=== PATIENT | female | born 1975 | race Caucasian/White ===

== ENCOUNTER 2017-01-01 10:52 | Outpatient (CLI) | payer BC ==
[2017-01-01 19:09] LABS: ALBUMIN/GLOBULIN RATIO 1.4 (1.0-2.2); BILIRUBIN,TOTAL 0.5 mg/dL (0.2-1.0); CALCIUM 9.6 mg/dL (8.5-10.3); CREATININE 0.6 mg/dL (0.4-1.0); POTASSIUM 3.5 mmol/L (3.5-5.0); TOTAL PROTEIN 7.8 g/dL (6.7-8.2)
== END 2017-01-01 10:53 | disposition home or self-care (01) ==
LOC: LAB.S 10:52
PROVIDERS: ATTEND Nurse Practitioner Family
DX: E87.6 Hypokalemia (principal); E03.9 Hypothyroidism, unspecified
CPT/HCPCS: 36415; 80053; 84443

== ENCOUNTER 2017-01-01 13:47 | Outpatient (CLI) | payer BC | END 2017-01-01 13:48 | disposition home or self-care (01) | DX: R07.9 Chest pain, unspecified (principal) ==

== ENCOUNTER 2017-01-08 14:17 | Outpatient (CLI) | payer BC ==
[2017-01-08 18:54] LABS: CALCIUM 9.7 mg/dL (8.5-10.3); CREATININE 0.7 mg/dL (0.4-1.0); POTASSIUM 4.1 mmol/L (3.5-5.0)
== END 2017-01-08 14:18 | disposition home or self-care (01) ==
LOC: LAB.F 14:17
PROVIDERS: ATTEND Nurse Practitioner Family
DX: E87.6 Hypokalemia (principal)
CPT/HCPCS: 36415; 80048

== ENCOUNTER 2017-01-22 09:35 | Outpatient (CLI) | payer BC ==
[2017-01-22 18:29] LABS: CALCIUM 9.2 mg/dL (8.5-10.3); CREATININE 0.7 mg/dL (0.4-1.0)
== END 2017-01-22 09:36 | disposition home or self-care (01) ==
LOC: LAB.F 09:35
PROVIDERS: ATTEND Nurse Practitioner Family
DX: E87.6 Hypokalemia (principal)
CPT/HCPCS: 36415; 80048

== ENCOUNTER 2017-02-05 14:27 | Outpatient (CLI) | payer BC | END 2017-02-05 14:28 | disposition home or self-care (01) | LOC: SC 14:27 | PROVIDERS: ATTEND Internal Medicine Pulmonary Disease | DX: G47.30 Sleep apnea, unspecified (principal); R06.83 Snoring; G47.10 Hypersomnia, unspecified | CPT/HCPCS: 99203; 99212 ==

== ENCOUNTER 2017-02-23 10:32 | Outpatient (CLI) | payer BC ==
[2017-02-23 20:33] LABS: CALCIUM 9.4 mg/dL (8.5-10.3); CREATININE 0.6 mg/dL (0.4-1.0); POTASSIUM 4.1 mmol/L (3.5-5.0)
== END 2017-02-23 10:33 | disposition home or self-care (01) ==
LOC: LAB.F 10:32
PROVIDERS: ATTEND Nurse Practitioner Family
DX: E87.6 Hypokalemia (principal)
CPT/HCPCS: 36415; 80048

== ENCOUNTER 2017-04-18 09:14 | Outpatient (CLI) | payer BC | END 2017-04-18 09:15 | disposition home or self-care (01) | LOC: SC 09:14 | PROVIDERS: ATTEND Nurse Practitioner Family | DX: G47.33 Obstructive sleep apnea (adult) (pediatric) (principal) | CPT/HCPCS: 99212; 99214 ==

== ENCOUNTER 2017-05-07 09:50 | Outpatient (CLI) | payer BC ==
[2017-05-07 19:08] LABS: BUN - BLOOD UREA NITROGEN 14 mg/dL (6-20); CALCIUM 9.8 mg/dL (8.5-10.3); CARBON DIOXIDE - CO2 28 mmol/L (21-32); CHLORIDE 99 mmol/L (101-111); CREATININE 0.7 mg/dL (0.4-1.0); GFR - MDRD 93 (>89); GLUCOSE 81 mg/dL (70-100); SODIUM 136 mmol/L (135-145)
== END 2017-05-07 09:51 | disposition home or self-care (01) ==
LOC: LAB.F 09:50
PROVIDERS: ATTEND Nurse Practitioner Family
DX: E78.6 Lipoprotein deficiency (principal); E03.9 Hypothyroidism, unspecified
CPT/HCPCS: 36415; 80048; 84443

== ENCOUNTER 2017-06-04 15:00 | Outpatient (CLI) | payer BC | END 2017-06-04 15:01 | disposition home or self-care (01) | LOC: SC 15:00 | PROVIDERS: ATTEND Nurse Practitioner Family | DX: G47.33 Obstructive sleep apnea (adult) (pediatric) (principal) | CPT/HCPCS: 99212; 99214 ==

== ENCOUNTER 2017-07-31 13:58 | Outpatient (CLI) | payer BC | END 2017-07-31 13:59 | disposition home or self-care (01) | LOC: SC 13:58 | PROVIDERS: ATTEND Nurse Practitioner Family | DX: G47.33 Obstructive sleep apnea (adult) (pediatric) (principal) | CPT/HCPCS: 99212; 99214 ==

== ENCOUNTER 2017-10-29 13:51 | Outpatient (CLI) | payer BC, OTHER | END 2017-10-29 13:52 | disposition home or self-care (01) | LOC: SC 13:51 | PROVIDERS: ATTEND Nurse Practitioner Family | DX: G47.33 Obstructive sleep apnea (adult) (pediatric) (principal); G47.63 Sleep related bruxism | CPT/HCPCS: 99212; 99214 ==

== ENCOUNTER 2017-12-17 09:25 | Outpatient (CLI) | payer OTHER ==
[2017-12-17 18:49] LABS: BASOPHILS # (AUTO) 0.1 10^3/uL (0.0-0.1); BASOPHILS % (AUTO) 0.9 %; EOSINOPHILS # (AUTO) 0.3 10^3/uL (0.0-0.7); EOSINOPHILS % (AUTO) 3.7 %; HGB - HEMOGLOBIN 14.3 g/dL (12.0-16.0); LYMPHOCYTES # (AUTO) 2.3 10^3/uL (1.5-3.5); LYMPHOCYTES % (AUTO) 31.6 %; MEAN CORPUSCULAR HEMOGLOBIN 30.4 pg (27.0-31.0); MEAN CORPUSCULAR HGB CONC 33.3 g/dL (32.0-36.0); MEAN CORPUSCULAR VOLUME 91.4 fL (81.0-99.0); MEAN PLATELET VOLUME 9.8 fL (7.9-10.8); MONOCYTES # (AUTO) 0.5 10^3/uL (0.0-1.0); MONOCYTES % (AUTO) 7.6 %; NEUTROPHILS % (AUTO) 56.2 %; PLT - PLATELET COUNT 226 10^3/uL (130-450); RED BLOOD COUNT 4.71 10^6/uL (4.20-5.40); RED CELL DISTRIBUTION WIDTH 12.7 % (12.0-15.0); WHITE BLOOD COUNT 7.1 x10^3/uL (4.8-10.8)
[2017-12-17 19:13] LABS: HB2 TOTAL 15.7 g/dL; HEMOGLOBIN A1C 0.5 g/dL; HEMOGLOBIN A1C % 5.1 % (4.6-6.2)
[2017-12-17 19:14] LABS: ALBUMIN 3.9 g/dL (3.2-5.5); ALBUMIN/GLOBULIN RATIO 1.2 (1.0-2.2); ALKALINE PHOSPHATASE 83 IU/L (42-121); ALT ALANINE AMINOTRANSFERASE 13 IU/L (10-60); AST ASPARTATE AMINOTRANSFERASE 13 IU/L (10-42); BILIRUBIN,TOTAL 0.5 mg/dL (0.2-1.0); BUN - BLOOD UREA NITROGEN 10 mg/dL (6-20); CALCIUM 9.1 mg/dL (8.5-10.3); CARBON DIOXIDE - CO2 28 mmol/L (21-32); CHLORIDE 100 mmol/L (101-111); CHOL/HDL RATIO 3.4 (<4.4); CHOLESTEROL 217 mg/dL; CREATININE 0.6 mg/dL (0.4-1.0); GFR - MDRD 111 (>89); GLUCOSE 98 mg/dL (70-100); HDL CHOLESTEROL 64 mg/dL; LDL CHOLESTEROL,CALCULATED 133 mg/dL; LDL/HDL RATIO 2.1 (<4.4); SODIUM 136 mmol/L (135-145); TOTAL PROTEIN 7.2 g/dL (6.7-8.2); VLDL CHOLESTEROL 20 mg/dL
== END 2017-12-17 09:26 | disposition home or self-care (01) ==
LOC: LAB.F 09:25
PROVIDERS: ATTEND Obstetrics & Gynecology
DX: N92.1 Excessive and frequent menstruation with irregular cycle (principal); R60.0 Localized edema; Z13.6 Encounter for screening for cardiovascular disorders; E66.01 Morbid (severe) obesity due to excess calories; E03.9 Hypothyroidism, unspecified
CPT/HCPCS: 36415; 80053; 80061; 83036; 83721; 84443; 85025

== ENCOUNTER 2017-12-17 10:44 | Outpatient (CLI) | payer OTHER ==
--- NOTE | 2017-12-18 15:11 | Mammography Report ---
DIGITAL SCREENING MAMMOGRAM: 12/17/2017 CLINICAL INDICATION: A 42-year-old for baseline. TECHNIQUE: Routine CC and MLO projections were obtained of the breasts. FINDINGS: The breasts demonstrate fatty replacement bilaterally. No suspicious masses, clustered microcalcifications, or regions of architectural distortion are identified. IMPRESSION: NEGATIVE EXAMINATION. RECOMMENDATION: Routine annual screening unless otherwise clinically indicated. BIRADS CATEGORY 1 - NEGATIVE. STANDARD QUALIFYING STATEMENTS: 1. This examination was reviewed with the aid of Computer-Aided Detection (CAD). 2. A negative or benign imaging report should not delay biopsy if clinically suspicious findings are present. Consider surgical consultation if warranted. More than 5% of cancers are not identified by imaging. 3. Dense breasts may obscure an underlying neoplasm. TD: 12/18/2017 15:10
== END 2017-12-17 10:45 | disposition home or self-care (01) ==
LOC: DI.S 10:44
PROVIDERS: ATTEND Obstetrics & Gynecology
DX: Z12.31 Encounter for screening mammogram for malignant neoplasm of breast (principal)
CPT/HCPCS: 77067

== ENCOUNTER 2018-01-08 17:05 | Outpatient (CLI) | payer OTHER ==
--- NOTE | 2018-01-09 09:34 | Ultrasound Report ---
TRANSABDOMINAL AND TRANSVAGINAL PELVIC ULTRASOUND: 01/08/2018 CLINICAL INDICATION: Pelvic pain. COMPARISON: 02/22/2016. TECHNIQUE: Transabdominal pelvic ultrasound performed for global evaluation. Transvaginal pelvic ultrasound performed for detailed evaluation. Real-time scanning performed and static images obtained. FINDINGS: The uterus is retroverted, measuring 7.2 x 4.2 x 3.9 cm. The endometrium measures 5 mm. A fundal 1.6 x 1.5 x 1.2 cm leiomyoma is incidentally noted. The right ovary is surgically absent. The left ovary measures 3.3 x 2.5 x 2.1 cm, and contains a 2.8 cm follicle. No free fluid is present. IMPRESSION: CHANGES OF RIGHT OOPHORECTOMY. SMALL FUNDAL LEIOMYOMA. LEFT OVARIAN FOLLICLE. TD: 01/09/2018 09:04
== END 2018-01-08 17:06 | disposition home or self-care (01) ==
LOC: DI 17:05
PROVIDERS: ATTEND Obstetrics & Gynecology
DX: R10.2 Pelvic and perineal pain (principal); D25.9 Leiomyoma of uterus, unspecified; Z90.721 Acquired absence of ovaries, unilateral
CPT/HCPCS: 76830; 76856

== ENCOUNTER 2018-05-13 14:01 | Outpatient (CLI) | payer OTHER | END 2018-05-13 14:02 | disposition home or self-care (01) | LOC: SC 14:01 | PROVIDERS: ATTEND Nurse Practitioner Family | DX: G47.33 Obstructive sleep apnea (adult) (pediatric) (principal) | CPT/HCPCS: 99212; 99214 ==

== ENCOUNTER 2018-06-05 09:45 | Outpatient (CLI) | payer OTHER | END 2018-06-05 09:46 | disposition home or self-care (01) | LOC: RT.S 09:45 | PROVIDERS: ATTEND Nurse Practitioner Family | DX: R00.2 Palpitations (principal) | CPT/HCPCS: 93005 ==

== ENCOUNTER 2018-10-09 12:45 | Outpatient (CLI) | payer OTHER ==
[2018-10-09 18:13] LABS: BASOPHILS # (AUTO) 0.1 10^3/uL (0.0-0.1); BASOPHILS % (AUTO) 0.8 %; EOSINOPHILS # (AUTO) 0.3 10^3/uL (0.0-0.7); EOSINOPHILS % (AUTO) 3.9 %; HGB - HEMOGLOBIN 15.2 g/dL (12.0-16.0); LYMPHOCYTES # (AUTO) 2.1 10^3/uL (1.5-3.5); LYMPHOCYTES % (AUTO) 24.1 %; MEAN CORPUSCULAR HEMOGLOBIN 31.4 pg (27.0-31.0); MEAN CORPUSCULAR HGB CONC 34.2 g/dL (32.0-36.0); MEAN CORPUSCULAR VOLUME 91.9 fL (81.0-99.0); MEAN PLATELET VOLUME 9.9 fL (7.9-10.8); MONOCYTES # (AUTO) 0.6 10^3/uL (0.0-1.0); MONOCYTES % (AUTO) 7.1 %; NEUTROPHILS # (AUTO) 5.7 10^3/uL (1.5-6.6); NEUTROPHILS % (AUTO) 64.1 %; PLT - PLATELET COUNT 232 10^3/uL (130-450); RED BLOOD COUNT 4.82 10^6/uL (4.20-5.40); WHITE BLOOD COUNT 8.9 x10^3/uL (4.8-10.8)
[2018-10-09 18:20] LABS: ALBUMIN/GLOBULIN RATIO 1.1 (1.0-2.2); BILIRUBIN,TOTAL 0.2 mg/dL (0.2-1.0); CALCIUM 8.9 mg/dL (8.5-10.3); CREATININE 0.6 mg/dL (0.4-1.0); TOTAL PROTEIN 7.6 g/dL (6.7-8.2)
[2018-10-09 18:22] LABS: HB2 TOTAL 16.8 g/dL; HEMOGLOBIN A1C 0.55 g/dL; HEMOGLOBIN A1C % 5.1 % (4.6-6.2)
== END 2018-10-09 12:46 | disposition home or self-care (01) ==
LOC: LAB.F 12:45
PROVIDERS: ATTEND Nurse Practitioner Family
DX: I10 Essential (primary) hypertension (principal); R00.2 Palpitations; E03.9 Hypothyroidism, unspecified; K92.1 Melena
CPT/HCPCS: 36415; 80053; 83036; 84443; 85025

== ENCOUNTER 2018-10-26 13:41 | Outpatient (CLI) | payer OTHER | END 2018-10-26 13:42 | disposition home or self-care (01) | LOC: DI 13:41 | PROVIDERS: ATTEND Nurse Practitioner Family | DX: R00.2 Palpitations (principal) | CPT/HCPCS: 93306 ==

== ENCOUNTER 2018-12-02 09:06 | Outpatient (CLI) | payer OTHER ==
[2018-12-02 18:54] LABS: THYROID STIMULATING HORMONE 4.42 uIU/mL (0.34-5.60)
[2018-12-02 18:56] LABS: FREE T4 (FREE THYROXINE) 0.55 ng/dL (0.58-1.64)
== END 2018-12-02 09:07 | disposition home or self-care (01) ==
LOC: LAB.F 09:06
PROVIDERS: ATTEND Naturopath
DX: E06.3 Autoimmune thyroiditis (principal); E88.81 Metabolic syndrome and other insulin resistance
CPT/HCPCS: 36415; 81599; 82947; 84439; 84443; 84481; 84482; 86376; 86800

== ENCOUNTER 2018-12-04 08:15 | Outpatient (CLI) | payer OTHER ==
[2018-12-04 11:05] LABS: HEMOGLOBIN A1C 0.51 g/dL; HEMOGLOBIN A1C % 5.3 % (4.6-6.2)
== END 2018-12-04 08:16 | disposition home or self-care (01) ==
LOC: LAB.F 08:15
PROVIDERS: ATTEND Naturopath
DX: E88.81 Metabolic syndrome and other insulin resistance (principal); E87.6 Hypokalemia
CPT/HCPCS: 36415; 83036; 84132

== ENCOUNTER 2019-01-07 08:57 | Outpatient (CLI) | payer OTHER | END 2019-01-07 08:58 | disposition home or self-care (01) | LOC: LAB.F 08:57 | PROVIDERS: ATTEND Nurse Practitioner Family | DX: I10 Essential (primary) hypertension (principal) | CPT/HCPCS: 36415; 84132 ==

== ENCOUNTER 2019-02-24 09:13 | Outpatient (CLI) | payer OTHER ==
[2019-02-24 17:48] LABS: CALCIUM 9.2 mg/dL (8.5-10.3); CREATININE 0.7 mg/dL (0.4-1.0)
[2019-02-24 18:00] LABS: THYROID STIMULATING HORMONE 2.81 uIU/mL (0.34-5.60)
[2019-02-24 18:02] LABS: FREE T4 (FREE THYROXINE) 0.63 ng/dL (0.58-1.64)
[2019-02-27 19:57] LABS: T3 REVERSE 12 ng/dL (8-25)
== END 2019-02-24 09:14 | disposition home or self-care (01) ==
LOC: LAB.S 09:13
PROVIDERS: ATTEND Naturopath
DX: I10 Essential (primary) hypertension (principal); E03.9 Hypothyroidism, unspecified
CPT/HCPCS: 36415; 80048; 84439; 84443; 84481; 84482; 86376; 86800

== ENCOUNTER 2019-06-23 13:44 | Outpatient (CLI) | payer OTHER ==
--- NOTE | 2019-06-23 14:53 | SLEEP CARE CONSULTATION ---
Information from patient questionnaire entered by Fanta Villanueva. I have reviewed and concur with the information entered by Fanta Villanueva. This document represents the service I personally performed and the decisions made by me, Neeru Farias, RN, MSN, LOGISTICS RESEARCH ENGINEER. History of Present Illness Previous diagnosis: Moderate, Obstructive Sleep Apnea-Hypopnea Syndrome AHI: 20.0 Reason for follow up: annual Equipment type: CPAP Equipment obtained from: [employer] Mask style: Full face Mask brand: Resmed Backup mask available: Yes Last cushion change: a few days ago CPAP Compliance Data - Data Reviewed with Patient Average duration of nightly device use: 8.1 Compliance rate %: 100 (180 days) Current pressure setting (cmH2O): 7-8 Humidity settin Heated hose settin Average residual AHI: 3.1 Average large leak: 0 Subjective Patient concerns: reports: aerophagia (waking to burp a couple times a week, no abdominal distention), dry mouth, nose, throat (moderate most days), other (drooling most nights ). denies: mask discomfort, air blowing in eyes, mask l eak noise, condensation in mask/hose, nasal congestion, epistaxis Observed to snore while using device: No Current pressure setting perceived as: comfortable On therapy, patient: reports: sleeping better, awakening more refreshed, being more awake and alert during the day, more rested overall. denies: drowsiness while driving Initial [place] Sleepiness Scale score: 6 Current [place] Sleepiness Scale score: 3 Allergies and Home Medications Known drug allergies: Yes (penicillin ) Home medication list reviewed: Yes Allergy and home medication list: Nifedipine 60mg tab daily Losartan Potassium 50mg tab daily Effer-K 25meq tab daily Pro Air 108 (90 base) mcg/act Inhale 2 puffs every 4 hours prn Armor Thyroid 90mg tab Spironolactone 12.5mg tab daily Flovent HFA 44 mcg/act Inhale 2 puffs daily Review of Systems Review of systems same as previous: No (diagnosed with Nathalia's and meds adjusted) Physical Exam Blood Pressure: 120/80 Cuff size: long Heart Rate: 107 O2 Saturation: 98 Height: 5 ft 8 in Weight: 272 lb 9.6 oz Body Mass Index: 41.4 BMI Classification: Obesity Class 3 Impression and Plan 1. Obstructive Sleep Apnea-Hypopnea Syndrome, moderate, with good treatment compliance and good apnea control. On CPAP therapy, the patient has better sleep quality and is more rested overall. For oral dryness, I showed her how to increase the humidity to 4, and higher if needed on a sample CPAP. If still dry, then she can reduce the heated hos and raise only if condensation. Printed instructions given from [employer]. Her drooling could be from her dry mouth. To reduce burping - when awakens, I will reduce pressure slightly to 7cmH20. She is to contact me if pressure discomfort or no resolve of burping. [employer] is doing well in sending her supplies. Patient's apnea severity and rationale for treatment to reduce apnea, improve sleep quality and reduce cardiovascular and cerebrovascular events was reviewed. I also reviewed the benefit of consistent device use of CPAP for hypertension, anxiety. * * Change CPAP pressure to 7 cmH2O * Adjust humidity / heated hose. * Notify me if snoring with mask or feeling that the pressure is too much or too little * Attempt to lose weight * Return for follow up in 1 year , or sooner if concerns arise I spent 100% of this 25 minute visit face to face with the patient with greater than 50% of this was spent time counseling the patient and coordination of care.
[2019-06-23 14:54] VITALS: BP 120/80
== END 2019-06-23 13:45 | disposition home or self-care (01) ==
LOC: SC 13:44
PROVIDERS: ATTEND Nurse Practitioner Family
DX: G47.33 Obstructive sleep apnea (adult) (pediatric) (principal); E66.9 Obesity, unspecified; Z68.41 Body mass index [BMI] 40.0-44.9, adult
CPT/HCPCS: 99212; 99214

== ENCOUNTER 2020-02-03 09:03 | Outpatient (CLI) | payer OTHER ==
[2020-02-03 15:14] LABS: BASOPHILS % (AUTO) 0.4 %; EOSINOPHILS # (AUTO) 0.4 10^3/uL (0.0-0.7); EOSINOPHILS % (AUTO) 4.7 %; HGB - HEMOGLOBIN 14.9 g/dL (12.0-16.0); LYMPHOCYTES # (AUTO) 2.4 10^3/uL (1.5-3.5); LYMPHOCYTES % (AUTO) 30.3 %; MEAN CORPUSCULAR HEMOGLOBIN 30.1 pg (27.0-31.0); MEAN CORPUSCULAR HGB CONC 32.4 g/dL (32.0-36.0); MEAN CORPUSCULAR VOLUME 92.9 fL (81.0-99.0); MEAN PLATELET VOLUME 11.6 fL (7.9-10.8); MONOCYTES # (AUTO) 0.6 10^3/uL (0.0-1.0); MONOCYTES % (AUTO) 7.2 %; NEUTROPHILS # (AUTO) 4.6 10^3/uL (1.5-6.6); PLT - PLATELET COUNT 248 10^3/uL (130-450); RED BLOOD COUNT 4.95 10^6/uL (4.20-5.40); RED CELL DISTRIBUTION WIDTH 12.1 % (12.0-15.0)
[2020-02-03 15:50] LABS: ALBUMIN 4.2 g/dL (3.2-5.5); ALBUMIN/GLOBULIN RATIO 1.3 (1.0-2.2); ALKALINE PHOSPHATASE 76 IU/L (42-121); ALT ALANINE AMINOTRANSFERASE 33 IU/L (10-60); AST ASPARTATE AMINOTRANSFERASE 25 IU/L (10-42); BILIRUBIN,TOTAL 0.5 mg/dL (0.2-1.0); BUN - BLOOD UREA NITROGEN 14 mg/dL (6-20); CALCIUM 9.3 mg/dL (8.5-10.3); CARBON DIOXIDE - CO2 26 mmol/L (21-32); CHLORIDE 104 mmol/L (101-111); CHOL/HDL RATIO 3.1 (<4.4); CHOLESTEROL 255 mg/dL; CREATININE 0.7 mg/dL (0.4-1.0); GLUCOSE 92 mg/dL (70-100); HDL CHOLESTEROL 81 mg/dL; LDL CHOLESTEROL,CALCULATED 144 mg/dL; LDL/HDL RATIO 1.8 (<4.4); SODIUM 139 mmol/L (135-145); TOTAL PROTEIN 7.4 g/dL (6.7-8.2); VLDL CHOLESTEROL 30 mg/dL
[2020-02-03 15:50] LABS: FREE T3 3.53 pg/mL (2.5-3.9)
[2020-02-03 15:52] LABS: FREE T4 (FREE THYROXINE) 0.68 ng/dL (0.58-1.64)
[2020-02-03 16:00] LABS: HB2 TOTAL 15.9 g/dL; HEMOGLOBIN A1C 0.52 g/dL; HEMOGLOBIN A1C % 5.1 % (4.6-6.2)
[2020-02-07 11:29] LABS: T3 REVERSE 10 ng/dL (8-25)
== END 2020-02-03 09:04 | disposition home or self-care (01) ==
LOC: LAB.S 09:03
PROVIDERS: ATTEND Naturopath
DX: E03.9 Hypothyroidism, unspecified (principal); F41.9 Anxiety disorder, unspecified; E66.01 Morbid (severe) obesity due to excess calories; I10 Essential (primary) hypertension; J45.909 Unspecified asthma, uncomplicated
CPT/HCPCS: 36415; 80053; 80061; 81599; 83036; 83525; 83721; 84439; 84443; 84481; 84482; 85025; 86376; 86800

== ENCOUNTER 2020-04-22 10:51 | Outpatient (CLI) | payer OTHER ==
--- NOTE | 2020-04-23 09:17 | Mammography Report ---
BILATERAL DIGITAL SCREENING MAMMOGRAM 3D/2D: 04/22/2020 CLINICAL: Routine screening. Comparison is made to exam dated: 12/17/2017 mammogram - [facility]. The tissue of both breasts is predominantly fatty. No significant masses, calcifications, or other findings are seen in either breast. There has been no significant interval change. IMPRESSION: NEGATIVE There is no mammographic evidence of malignancy. A 1 year screening mammogram is recommended. This exam was interpreted at Station ID: [id number]. NOTE: For mammograms, a report in lay terms will be sent to the patient. Approximately 15% of breast malignancies will not be visualized mammographically. In the management of a palpable breast mass, a negative mammogram must not discourage biopsy of a clinically suspicious lesion. Electronically Signed By: Dawson laureano/panfilo:04/22/2020 13:27:18 ACR BI-RADS Category 1: Negative 3341F PARENCHYMAL PATTERN: (F) - The breast(s) demonstrate(s) diffuse fatty replacement. BI-RADS CATEGORY: (1) - 1 RECOMMENDATION: (ANNUAL) - Recommend routine annual screening mammography. [id number] 1 year screening LATERALITY: (B)
== END 2020-04-22 10:52 | disposition home or self-care (01) ==
LOC: DI 10:51
DX: Z12.31 Encounter for screening mammogram for malignant neoplasm of breast (principal)
CPT/HCPCS: 77063; 77067

== ENCOUNTER 2020-09-15 09:35 | Outpatient (CLI) | payer OTHER ==
[2020-09-15 15:17] LABS: CHOL/HDL RATIO 3.4 (<4.4); CHOLESTEROL 217 mg/dL; GLUCOSE 95 mg/dL (70-100); HDL CHOLESTEROL 64 mg/dL; LDL CHOLESTEROL,CALCULATED 132 mg/dL; LDL/HDL RATIO 2.1 (<4.4); VLDL CHOLESTEROL 21 mg/dL
[2020-09-15 15:26] LABS: FREE T3 2.82 pg/mL (2.5-3.9)
[2020-09-15 17:04] LABS: BASOPHILS % (AUTO) 0.4 %; EOSINOPHILS # (AUTO) 0.3 10^3/uL (0.0-0.7); EOSINOPHILS % (AUTO) 3.9 %; HGB - HEMOGLOBIN 14.7 g/dL (12.0-16.0); LYMPHOCYTES % (AUTO) 26.6 %; MEAN CORPUSCULAR HEMOGLOBIN 31.2 pg (27.0-31.0); MEAN CORPUSCULAR HGB CONC 33.8 g/dL (32.0-36.0); MEAN CORPUSCULAR VOLUME 92.4 fL (81.0-99.0); MEAN PLATELET VOLUME 11.7 fL (7.9-10.8); MONOCYTES # (AUTO) 0.5 10^3/uL (0.0-1.0); NEUTROPHILS # (AUTO) 4.7 10^3/uL (1.5-6.6); PLT - PLATELET COUNT 214 10^3/uL (130-450); RED BLOOD COUNT 4.71 10^6/uL (4.20-5.40); RED CELL DISTRIBUTION WIDTH 12.5 % (12.0-15.0); WHITE BLOOD COUNT 7.6 x10^3/uL (4.8-10.8)
[2020-09-19 14:56] LABS: T3 REVERSE 8 ng/dL (8-25)
== END 2020-09-15 09:36 | disposition home or self-care (01) ==
LOC: LAB.S 09:35
PROVIDERS: ATTEND Naturopath
DX: E03.9 Hypothyroidism, unspecified (principal)
CPT/HCPCS: 36415; 80061; 81599; 82947; 83036; 83525; 83721; 84443; 84481; 84482; 85025; 86376; 86800

== ENCOUNTER 2020-09-23 08:29 | Outpatient (CLI) | payer OTHER ==
--- NOTE | 2020-09-23 12:23 | XRAY Report ---
PROCEDURE: Elbow 2 View RT INDICATIONS: STRAIN OF MUSCLE, RIGHT TECHNIQUE: 2 views of the elbow were acquired. COMPARISON: None FINDINGS: Bones: Joint space is maintained. No degenerative changes. No fractures or dislocations. No suspicio us lytic or blastic lesion. Soft tissues: No elbow joint effusion. No suspicious soft tissue calcifications. IMPRESSION: Normal left elbow radiographs. Reviewed by: Clayton Hastings MD on 09/23/2020 12:22 PM PST Approved by: Clayton Hastings MD on 09/23/2020 12:22 PM PST Station ID: [id number]
== END 2020-09-23 23:59 | disposition home or self-care (01) ==
LOC: DI.N 08:29
PROVIDERS: ATTEND Physician Assistant
DX: S46.211A Strain of muscle, fascia and tendon of other parts of biceps, right arm, initial encounter (principal)

== ENCOUNTER 2021-01-03 08:48 | Outpatient (CLI) | payer OTHER ==
[2021-01-03 14:36] LABS: ALBUMIN/GLOBULIN RATIO 1.3 (1.0-2.2); BILIRUBIN,TOTAL 0.7 mg/dL (0.2-1.0); CREATININE 0.6 mg/dL (0.4-1.0); POTASSIUM 3.7 mmol/L (3.5-5.0); TOTAL PROTEIN 7.1 g/dL (6.7-8.2)
== END 2021-01-03 08:49 | disposition home or self-care (01) ==
LOC: LAB.S 08:48
PROVIDERS: ATTEND Registered Nurse
DX: I10 Essential (primary) hypertension (principal); L30.9 Dermatitis, unspecified; E03.9 Hypothyroidism, unspecified; J45.909 Unspecified asthma, uncomplicated
CPT/HCPCS: 36415; 80053

== ENCOUNTER 2021-03-11 15:00 | Outpatient (CLI) | payer OTHER ==
--- NOTE | 2021-03-11 15:31 | SLEEP CARE CONSULTATION ---
Information from patient questionnaire entered by Fanta Villanueva. I have reviewed and concur with the information entered by Fanta Villanueva. This document represents the service I personally performed and the decisions made by , Radha Archibald ARNP. History of Present Illness Service Date and Time: 03/11/2021 1500 Previous diagnosis: Moderate, Obstructive Sleep Apnea-Hypopnea Syndrome AHI: 20.0 (in 2016) Reason for follow up: annual (last seen 06/2019) Equipment type: CPAP Equipment obtained from: [employer] (getting supplies as needed) Mask style: Full face Backup mask available: Yes (old mask) Prior sleep studies: Yes Year and Where: 2017 - [facility] Type of Sleep Study: Home sleep study HPI additional information: KYRIE GREGORY was diagnosed to have moderate, AHI 20.0, obstructive sleep apnea- hypopnea syndrome and returned today for CPAP therapy annual follow-up. CPAP Compliance Data - Data Reviewed with Patient Average duration of nightly device use: 8 hr 15 min Compliance rate %: 100 (180 days) Current pressure setting (cmH2O): 7 Humidity settin Heated hose settin Average residual AHI: 3.7 Average large leak: 0 Subjective Patient concerns: reports: other (Recall). denies: aerophagia, mask discomfort, air blowing in eyes, mask leak noise, condensation in mask/hose, nasal congestion, dry mouth, nose, throat, epistaxis Observed to snore while using device: No Current pressure setting perceived as: comfortable On therapy, patient: reports: sleeping better, awakening more refreshed, being more awake and alert during the day, more rested overall. denies: drowsiness while driving Initial [place] Sleepiness Scale score: 6 (in 2011) Current [place] Sleepiness Scale score: 4 Allergies and Home Medications Home medication list reviewed: Yes ([place]) Review of Systems Review of systems same as previous: Yes (no changes) Physical Exam Heart Rate: 84 O2 Saturation: 98 Height: 5 ft 8 in Weight: 282 lb Body Mass Index: 42.8 BMI Classification: Morbidly Obese Impression and Plan 1. Obstructive Sleep Apnea-Hypopnea Syndrome, moderate, with excellent treatment compliance and good apnea control. On CPAP therapy, the patient has better sleep quality and is more rested overall. Patient is very satisfied with her current CPAP treatment. Patient states she is about to go see cognos report developer to help her with food choices and losing weight. I encouraged her to continue trying to lose weight. She just stopped using her DreamStation because of the [employer] recall. Her had a ResMed air sense 10 that he is not using, does not need. Patient has been having a sore throat and was advised by [employer] and her [employer] company to stop using her CPAP machine. She would like to use her 's machine that is set on 7 cmH2O which is what she needs. She has been using it for the last 3 days. Patient has already registered their device for the recall. Patient informed that they may use an inline CPAP filter that they can obtain online to reduce chance of any particles being inhaled or ingested. She states she cannot sleep without her CPAP because she will wake up gasping for air and anxious. Patient has an older device that is not on the recall that she is going to use until they replace her device. Patient to contact [employer] company to switch her to this device. Patient voiced understanding and agreement with plan. Patient's apnea severity and rationale for treatment to reduce apnea, improve sleep quality and reduce cardiovascular and cerebrovascular events was reviewed. I also reviewed the benefit of consistent device use of CPAP for hypertension and anxiety. * Continue CPAP pressure at 7 cmH2O * Patient to call DME and have device switched from Dreamstation to ResMed * Notify me if snoring with mask or feeling that the pressure is too much or too little * Continue to try to lose weight * Call this office if any problems using CPAP * Return for follow up in 1 year, or sooner if concerns arise Counseling Topics: Spare mask, Weight loss health impact Visit Type: In Office Time Spent with Patient (minutes): 23 Provider Statement: I spent 100% of the Face to Face Visit with the patient with greater than 50% spent counseling the patient and coordination of care.
== END 2021-03-11 15:01 | disposition home or self-care (01) ==
LOC: SC 15:00
PROVIDERS: ATTEND Nurse Practitioner Family
DX: G47.33 Obstructive sleep apnea (adult) (pediatric) (principal); E66.01 Morbid (severe) obesity due to excess calories; Z68.41 Body mass index [BMI] 40.0-44.9, adult
CPT/HCPCS: 99212; 99213

== ENCOUNTER 2021-03-14 12:59 | Outpatient (CLI) | payer OTHER | END 2021-03-14 13:00 | disposition home or self-care (01) | LOC: NS 12:59 | PROVIDERS: ATTEND Registered Nurse | DX: Z71.3 Dietary counseling and surveillance (principal); E66.01 Morbid (severe) obesity due to excess calories; Z68.41 Body mass index [BMI] 40.0-44.9, adult | CPT/HCPCS: 97802 ==

== ENCOUNTER 2021-05-05 09:59 | Outpatient (CLI) | payer OTHER ==
[2021-05-05 15:19] LABS: BASOPHILS % (AUTO) 0.5 %; EOSINOPHILS # (AUTO) 0.3 10^3/uL (0.0-0.7); EOSINOPHILS % (AUTO) 3.5 %; HCT - HEMATOCRIT 44.1 % (37.0-47.0); HGB - HEMOGLOBIN 14.5 g/dL (12.0-16.0); LYMPHOCYTES # (AUTO) 1.7 10^3/uL (1.5-3.5); LYMPHOCYTES % (AUTO) 22.9 %; MEAN CORPUSCULAR HEMOGLOBIN 30.8 pg (27.0-31.0); MEAN CORPUSCULAR HGB CONC 32.9 g/dL (32.0-36.0); MEAN CORPUSCULAR VOLUME 93.6 fL (81.0-99.0); MEAN PLATELET VOLUME 11.6 fL (7.9-10.8); MONOCYTES # (AUTO) 0.7 10^3/uL (0.0-1.0); MONOCYTES % (AUTO) 9.3 %; NEUTROPHILS # (AUTO) 4.7 10^3/uL (1.5-6.6); NEUTROPHILS % (AUTO) 63.7 %; PLT - PLATELET COUNT 225 10^3/uL (130-450); RED BLOOD COUNT 4.71 10^6/uL (4.20-5.40); RED CELL DISTRIBUTION WIDTH 12.3 % (12.0-15.0); WHITE BLOOD COUNT 7.4 x10^3/uL (4.8-10.8)
[2021-05-05 15:44] LABS: CHOL/HDL RATIO 3.4 (<4.4); CHOLESTEROL 233 mg/dL; GLUCOSE 101 mg/dL (70-100); HDL CHOLESTEROL 69 mg/dL; LDL CHOLESTEROL,CALCULATED 146 mg/dL; LDL/HDL RATIO 2.1 (<4.4); TRIGLYCERIDES 91 mg/dL; VLDL CHOLESTEROL 18 mg/dL
[2021-05-05 15:48] LABS: THYROID STIMULATING HORMONE 1.33 uIU/mL (0.34-5.60)
[2021-05-05 15:50] LABS: FREE T3 3.17 pg/mL (2.5-3.9); FREE T4 (FREE THYROXINE) 0.58 ng/dL (0.58-1.64)
[2021-05-05 20:19] LABS: ESTIMATED AVERAGE GLUCOSE 97 mg/dL (70-100)
[2021-05-12 14:03] LABS: T3 REVERSE 10 ng/dL (8-25)
== END 2021-05-05 10:00 | disposition home or self-care (01) ==
LOC: LAB.S 09:59
PROVIDERS: ATTEND Naturopath
DX: E03.9 Hypothyroidism, unspecified (principal)
CPT/HCPCS: 36415; 80061; 81599; 82947; 83036; 83721; 84439; 84443; 84481; 84482; 85025; 86376; 86800

== ENCOUNTER 2021-05-05 12:56 | Outpatient (CLI) | payer OTHER | END 2021-05-05 12:57 | disposition home or self-care (01) | LOC: NS 12:56 | PROVIDERS: ATTEND Registered Nurse | DX: Z71.3 Dietary counseling and surveillance (principal); E03.9 Hypothyroidism, unspecified; E66.01 Morbid (severe) obesity due to excess calories; Z68.41 Body mass index [BMI] 40.0-44.9, adult | CPT/HCPCS: 36415; 80061; 81599; 82947; 83036; 83525; 83721; 84439; 84443; 84481; 84482; 85025; 86376; 86800; 97803 ==

== ENCOUNTER 2021-05-24 09:50 | Outpatient (CLI) | payer OTHER ==
[2021-05-24 15:17] LABS: CALCIUM 8.9 mg/dL (8.5-10.3); CREATININE 0.5 mg/dL (0.4-1.0); POTASSIUM 3.6 mmol/L (3.5-5.0)
[2021-05-24 15:30] LABS: % IRON SATURATION 38 % (20-50); IRON 121 ug/dL (28-170); TOTAL IRON BINDING CAPACITY 318 ug/dL (250-450); TRANSFERRIN 227 mg/dL (192-382)
== END 2021-05-24 09:51 | disposition home or self-care (01) ==
LOC: LAB.S 09:50
PROVIDERS: ATTEND Emergency Medicine
DX: I10 Essential (primary) hypertension (principal); E66.01 Morbid (severe) obesity due to excess calories; E03.9 Hypothyroidism, unspecified
CPT/HCPCS: 36415; 80048; 82306; 83540; 84466

== ENCOUNTER 2021-08-08 13:41 | Outpatient (CLI) | payer OTHER ==
--- NOTE | 2021-08-09 11:46 | Mammography Report ---
BILATERAL DIGITAL SCREENING MAMMOGRAM 3D/2D: 08/08/2021 CLINICAL: Routine screening. Comparison is made to exams dated: 04/22/2020 mammogram and 12/17/2017 mammogram - [facility]. The tissue of both breasts is predominantly fatty. No significant masses, calcifications, or other findings are seen in either breast. IMPRESSION: NEGATIVE There is no mammographic evidence of malignancy. A 1 year screening mammogram is recommended. This exam was interpreted at Station ID: [id number]. NOTE: For mammograms, a report in lay terms will be sent to the patient. Approximately 15% of breast malignancies will not be visualized mammographically. In the management of a palpable breast mass, a negative mammogram must not discourage biopsy of a clinically suspicious lesion. Electronically Signed By: Clayton Hastings M.D., jr/panfilo:08/08/2021 14:51:40 ACR BI-RADS Category 1: Negative 3341F PARENCHYMAL PATTERN: (F) - The breast(s) demonstrate(s) diffuse fatty replacement. BI-RADS CATEGORY: (1) - 1 RECOMMENDATION: (ANNUAL) - Recommend routine annual screening mammography. [id number] 1 year screening LATERALITY: (B)
== END 2021-08-08 13:42 | disposition home or self-care (01) ==
LOC: DI.S 13:41
PROVIDERS: ATTEND Obstetrics & Gynecology
DX: Z12.39 Encounter for other screening for malignant neoplasm of breast (principal); Z12.31 Encounter for screening mammogram for malignant neoplasm of breast

== ENCOUNTER 2022-02-02 14:54 | Outpatient (CLI) | payer OTHER ==
[2022-02-02 20:02] LABS: BASOPHILS # (AUTO) 0.1 10^3/uL (0.0-0.1); BASOPHILS % (AUTO) 0.9 %; EOSINOPHILS # (AUTO) 0.3 10^3/uL (0.0-0.7); EOSINOPHILS % (AUTO) 3.4 %; HCT - HEMATOCRIT 44.4 % (37.0-47.0); HGB - HEMOGLOBIN 14.2 g/dL (12.0-16.0); LYMPHOCYTES # (AUTO) 2.2 10^3/uL (1.5-3.5); LYMPHOCYTES % (AUTO) 29.7 %; MEAN CORPUSCULAR HEMOGLOBIN 30.5 pg (27.0-31.0); MEAN CORPUSCULAR VOLUME 95.3 fL (81.0-99.0); MEAN PLATELET VOLUME 12.2 fL (7.9-10.8); MONOCYTES # (AUTO) 0.7 10^3/uL (0.0-1.0); MONOCYTES % (AUTO) 9.3 %; NEUTROPHILS # (AUTO) 4.2 10^3/uL (1.5-6.6); NEUTROPHILS % (AUTO) 56.3 %; PLT - PLATELET COUNT 247 10^3/uL (130-450); RED BLOOD COUNT 4.66 10^6/uL (4.20-5.40); RED CELL DISTRIBUTION WIDTH 12.8 % (12.0-15.0); WHITE BLOOD COUNT 7.4 x10^3/uL (4.8-10.8)
[2022-02-02 20:13] LABS: ALBUMIN 4.1 g/dL (3.2-5.5); ALBUMIN/GLOBULIN RATIO 1.3 (1.0-2.2); BILIRUBIN,TOTAL 0.5 mg/dL (0.2-1.0); CALCIUM 9.3 mg/dL (8.5-10.3); CREATININE 0.7 mg/dL (0.4-1.0); POTASSIUM 3.8 mmol/L (3.5-5.0); TOTAL PROTEIN 7.3 g/dL (6.7-8.2)
[2022-02-02 20:30] LABS: THYROID STIMULATING HORMONE 1.98 uIU/mL (0.34-5.60)
== END 2022-02-02 14:55 | disposition home or self-care (01) ==
LOC: LAB.S 14:54
PROVIDERS: ATTEND Nurse Practitioner Family
DX: E03.9 Hypothyroidism, unspecified (principal); R42 Dizziness and giddiness
CPT/HCPCS: 36415; 80053; 84443; 85025

== ENCOUNTER 2022-05-01 09:21 | Outpatient (CLI) | payer OTHER ==
[2022-05-01 10:05] VITALS: BP 128/88
--- NOTE | 2022-05-01 10:05 | SLEEP CARE CONSULTATION ---
Information from patient questionnaire entered by Mary Ellen Jordan. I have reviewed and concur with the information entered by Mary Ellen Jordan. This document represents the service I personally performed and the decisions made by me, Roney Barrow MD, [facility]. History of Present Illness Service Date and Time: 05/01/2022920 Previous diagnosis: Moderate, Obstructive Sleep Apnea-Hypopnea Syndrome AHI: 20.0 (in 2017) Reason for follow up: annual (LAST SEEN 03/09) Equipment type: CPAP (DREAMSTATION) Equipment obtained from: [employer] (getting supplies as needed) Mask style: Full face Prior sleep studies: Yes Year and Where: 2016 - [facility] Type of Sleep Study: Home sleep study HPI additional information: Ms. Contreras returned today for follow up of nasal CPAP therapy. She was diagnosed to have moderate obstructive sleep apnea-hypopnea syndrome. The patient just received a new ResMed AirSense 11 from [employer] to replace her [employer] DreamStation autoCPAP that was recalled. She has not started using it yet because she is not sure if the pressure setting is correct. Instead, she uses her husbands ResMed AirSense 10 which is set at 7 10 cmH2O (her old machine was set at 7 cmH2O). She reports using the device nightly and all through the night. She complains of aerophagia. On the CPAP therapy she notices improvement in her sleep quality, and that she wakes up feeling fresher in the morning and more awake/alert during the day. The [place] Sleepiness Scale score 2. Her notices no snore at all. The average residual AHI is 1.7: and air leak, 1.0 L/min. The 90th percentile pressure is 8.7 cmH2O. She reports some weight loss. Sleep Study - Results Type of Sleep Study: Home sleep study Prior sleep studies: Yes Year and Where: 2016 - [facility] CPAP Compliance Data - Data Reviewed with Patient Average duration of nightly device use: 7 HOURS, 2 MINUTES Compliance rate %: 98 (11/02/21 TO 04/30/22) Current pressure setting (cmH2O): 7-10 Average residual AHI: 1.7 Subjective Initial [place] Sleepiness Scale score: 6 (in 2011) Current [place] Sleepiness Scale score: 2 (05/01/22) Allergies and Home Medications Drug allergies reviewed: Yes Home medication list reviewed: Yes Allergy and home medication list: Allergies Penicillins Allergy (Verified 03/14/16 13:46) Hives adhesive tape Adverse Reaction (Verified 03/14/16 13:46) Rash Review of Systems Review of systems same as previous: Yes Physical Exam Vital signs obtained and entered by: SHELLI COOLEY Blood Pressure: 128/88 (LEFT ARM ) Heart Rate: 70 O2 Saturation: 97 Height: 5 ft 8 in Weight: 264 lb Body Mass Index: 40.1 BMI Classification: Morbidly Obese Impression and Plan IMPRESSION: 1. Obstructive Sleep Apnea-Hypopnea Syndrome, moderate, with the patient doing well on nasal CPAP therapy. She has excellent compliance and significant clinical improvement. The current pressure appears effective but uncomfortable due to aerophagia. This is understandable because her husbands machine is set higher than her [employer] DreamStation autoCPAP. Overall, she is very satisfied with treatment and plans to continue with it long-term. I set her new ResMed AirSense 11 to 4 8 cmH2O (the machine was set 6 14 cmH2O) and explained to her how to operate it ([employer] mailed the machine to her without any instruction). PLAN: 1. Start using her new machine. 2. Try to lose more weight 3. Return in one month for follow up to check the residual AHI. Counseling Topics: Weight control Follow up with Sleep Care in: 1-2 months Visit Type: In Office Time Spent with Patient (minutes): 20 Provider Statement: I spent 100% of the Face to Face Visit with the patient with greater than 50% spent counseling the patient and coordination of care.
== END 2022-05-01 09:22 | disposition home or self-care (01) ==
LOC: SC 09:21
PROVIDERS: ATTEND Nurse Practitioner Family
DX: G47.33 Obstructive sleep apnea (adult) (pediatric) (principal); E66.01 Morbid (severe) obesity due to excess calories; Z68.41 Body mass index [BMI] 40.0-44.9, adult
CPT/HCPCS: 99212; 99213

== ENCOUNTER 2022-05-23 08:00 | Outpatient (CLI) | payer OTHER | END 2022-05-23 23:59 | disposition home or self-care (01) | LOC: LAB.WC 08:00 | PROVIDERS: ATTEND Nurse Practitioner | DX: N76.6 Ulceration of vulva (principal) | CPT/HCPCS: 87252 ==

== ENCOUNTER 2022-06-12 11:25 | Outpatient (CLI) | payer OTHER ==
[2022-06-12 12:19] VITALS: BP 124/76
--- NOTE | 2022-06-12 12:19 | SLEEP CARE CONSULTATION ---
Information from patient questionnaire entered by Ashwini Young. I have reviewed and concur with the information entered by Ashwini Young. This document represents the service I personally performed and the decisions made by me, Roney Barrow MD, [facility]. History of Present Illness Service Date and Time: 06/12/2022 1125 Previous diagnosis: Moderate, Obstructive Sleep Apnea-Hypopnea Syndrome AHI: 20.0 (in 2017) Reason for follow up: first compliance Equipment type: CPAP (RESMED) Equipment obtained from: [employer] (getting supplies as needed) Mask style: Full face Prior sleep studies: Yes Year and Where: 2016 - [facility] Type of Sleep Study: Home sleep study HPI additional information: Ms. Contreras returned today for follow up of nasal CPAP therapy. She was diagnosed to have moderate obstructive sleep apnea-hypopnea syndrome. The patient just received a new ResMed AirSense 11 from [employer] to replace her [employer] DreamStation autoCPAP that was recalled. She started using it after I set the device up for her a month ago. The compliance data show usage in 39 out of the past 39 nights, averaging 7.8 hours a night. The > 4-hour compliance rate for the past 30 days is 100%. The residual AHI is 2.6 and average air leak is 1.1 L/minute. The device is set at 7 cmH2O (I manually set it at 4- 8 cmH2O on her last visit but the log shows the pressure was reset 3 days later to 7 cmH 2O). Sleep Study - Results Type of Sleep Study: Home sleep study Prior sleep studies: Yes Year and Where: 2016 - [facility] CPAP Compliance Data - Data Reviewed with Patient Average duration of nightly device use: 7HRS,54MIN Compliance rate %: 100 (05/10/22-06/08/22) Current pressure setting (cmH2O): 7-FULLTIME Average residual AHI: 2.5 Subjective Initial [place] Sleepiness Scale score: 6 (in 2011) Current [place] Sleepiness Scale score: 4 (06/12/2022) Allergies and Home Medications Drug allergies reviewed: Yes Home medication list reviewed: Yes Allergy and home medication list: Allergies Penicillins Allergy (Verified 03/14/16 13:46) Hives adhesive tape Adverse Reaction (Verified 03/14/16 13:46) Rash Review of Systems Review of systems same as previous: Yes Physical Exam Vital signs obtained and entered by: ASHWINI Armenta MA Blood Pressure: 124/76 (left arm) Cuff size: long Heart Rate: 71 O2 Saturation: 96 Height: 5 ft 8 in Weight: 264 lb 3.2 oz Body Mass Index: 40.1 BMI Classification: Morbidly Obese Impression and Plan IMPRESSION: 1. Obstructive Sleep Apnea-Hypopnea Syndrome, moderate, with the patient doing well on nasal CPAP therapy. She has excellent compliance and significant clinical improvement. The current pressure appears effective. I will again set the device at 4 8 cmH2O. PLAN: 1. autoCPAP set to 4 8 cmH2O via the modem. 2. Try to lose more weight 3. Return for follow up in a year or earlier if there is any problem. 4. Repeat the sleep study when her weight drops to around 240 lbs. Counseling Topics: Weight control Follow up with Sleep Care in: 1 year Follow up recommended for: Weight management Visit Type: In Office Time Spent with Patient (minutes): 15 Provider Statement: I spent 100% of the Face to Face Visit with the patient with greater than 50% spent counseling the patient and coordination of care.
== END 2022-06-12 11:26 | disposition home or self-care (01) ==
LOC: SC 11:25
PROVIDERS: ATTEND Internal Medicine Pulmonary Disease
DX: G47.33 Obstructive sleep apnea (adult) (pediatric) (principal); E66.01 Morbid (severe) obesity due to excess calories; Z68.41 Body mass index [BMI] 40.0-44.9, adult
CPT/HCPCS: 99212

== ENCOUNTER 2022-07-19 08:45 | Day surgery (SDC) | payer OTHER ==
[2022-07-19] MEDS ORDERED: LACTATED RINGERS 1,000 ML IV ONE ×2 (09:11→10:39)
--- NOTE | 2022-07-19 09:37 | ANESTHESIA ---
Pre-Anesthesia VS, & Labs - Diagnosis screening - Procedure colonoscopy Vital Signs: Temp Pulse Resp BP Pulse Ox O2 Flow Rate 37.2 C 102 H 14 153/97 H 98 07/19/22 09:01 07/19/22 09:01 07/19/22 09:01 07/19/22 09:01 07/19/22 09:01 Height: 5 ft 8 in Weight (kg): 117 kg Body Mass Index: 39.2 BMI Classification: Obese - NPO >8 hours - Is Patient ?: No Home Medications and Allergies Home Medications: Ambulatory Orders buPROPion [Wellbutrin Xl] 150 mg PO DAILY 07/18/22 Albuterol Sulfate [Proair Hfa] 1 puffs IH QPM 03/14/16 Levothyroxine [Synthroid] 50 mcg PO QDAC 03/14/16 Nifedipine [Nifedical Xl] 60 mg PO DAILY 03/14/16 Potassium Chloride 20 meq PO DAILY 03/14/16 lisinopriL [Prinivil] 20 mg PO QPM 03/14/16 buPROPion [Wellbutrin Xl] 150 mg PO DAILY 07/18/22 Allergies/Adverse Reactions: Allergies Allergy/AdvReac Type Severity Reaction Status Date / Time Penicillins Allergy Hives Verified 06/12/22 11:40 adhesive tape AdvReac Rash Verified 06/12/22 11:40 duloxetine AdvReac Nausea Verified 07/19/22 09:19 escitalopram AdvReac Nausea Verified 07/19/22 09:19 Anes History & Medical History - Anesthetic History Anesthesia Complications: reports: No previous complications Family history of Anesthesia Complications: Denies Family history of Malignant Hyperthermia: Denies - Medical History Cardiovascular: reports: Hypertension, Murmur, Arrhythmia Pulmonary: reports: Asthma, Sleep apnea, CPAP use Gastrointestinal: reports: Other Urinary: reports: None Neuro: reports: None Musculoskeletal: reports: None Endocrine/Autoimmune: reports: HyPOthyroidism Blood Disorders: reports: None Skin: reports: None Smoking Status: Never smoker Psychosocial: reports: No issues indicated History of Cancer?: No - Surgical History General: reports: Cholecystectomy Gynecologic: reports: section, Tubal ligation, Oophrectomy Exam General: Alert, Oriented x3, Cooperative, No acute distress Dental: WNL Mouth Openin Fingerbreadth Neck Mobility: Normal Mallampati classification: II Thyromental Distance: 4-6 cm Respiratory: Lungs clear, Normal breath sounds, No respiratory distress, No accessory muscle use Cardiovascular: Regular rate, Normal S1, Normal S2, No murmurs Mental/Cognitive Status: Alert/Oriented X3, Normal for patient Cognitive Status: Within normal limits Plan Anesthesia Type: General Consent for Procedure(s) Verified and Reviewed: Yes Code Status: Attempt Resuscitation ASA classification: 2-Mild systemic disease Is this case an emergency?: No
[2022-07-19] MEDS ORDERED: PROPOFOL 500 MG/50 ML 500 MG/50 ML VIAL ONE (09:44)
[2022-07-19] MEDS ORDERED: ONDANSETRON 4 MG/2 ML VIAL ONE (09:47)
[2022-07-19] MEDS ORDERED: MIDAZOLAM 2 MG/2 ML VIAL ONE (09:47)
[2022-07-19] MEDS ORDERED: LIDOCAINE-MPF 2% 5 ML VIAL ONE (09:49)
[2022-07-19] MEDS ORDERED: PROPOFOL 200 MG/20 ML VIAL IVP ONE (10:14)
[2022-07-19 10:58] VITALS: BP 132/83
--- NOTE | 2022-07-19 12:48 | ANESTHESIA POST OP EVALUATION ---
Anesthesia Post Eval - Post Anesthesia Eval Vitals: Last Vital Signs Temp 36.8 C 07/19/22 10:57 Pulse 74 07/19/22 10:57 Resp 16 07/19/22 10:57 BP 132/83 H 07/19/22 10:57 Pulse Ox 97 07/19/22 10:57 O2 Flow Rate CV Function Including HR & BP: Stable Pain Control: Satisfactory Nausea & Vomiting: Negative Mental Status: Baseline Respiratory Status: Airway Patent Hydration Status: Satisfactory Anesthesia Complications: None
== END 2022-07-19 08:46 | disposition home or self-care (01) ==
LOC: SDS 08:45
PROVIDERS: ATTEND Surgery
PROC: 0DBN8ZZ Excision of Sigmoid Colon, Via Natural or Artificial Opening Endoscopic (ICD-10-PCS; 2022-07-19)
PROC: 0DBP8ZZ Excision of Rectum, Via Natural or Artificial Opening Endoscopic (ICD-10-PCS; principal; 2022-07-19 10:00)
DX: R19.5 Other fecal abnormalities (principal); D12.8 Benign neoplasm of rectum; K63.5 Polyp of colon; K64.8 Other hemorrhoids; E66.9 Obesity, unspecified; Z68.39 Body mass index [BMI] 39.0-39.9, adult; G47.30 Sleep apnea, unspecified; E03.9 Hypothyroidism, unspecified; Z80.0 Family history of malignant neoplasm of digestive organs; J45.909 Unspecified asthma, uncomplicated
CPT/HCPCS: 45380; 45385; J7120

== ENCOUNTER 2022-08-16 10:38 | Outpatient (CLI) | payer OTHER ==
--- NOTE | 2022-08-17 13:02 | Mammography Report ---
BILATERAL DIGITAL SCREENING MAMMOGRAM 3D/2D: 08/16/2022 CLINICAL: Routine screening. Comparison is made to exams dated: 08/08/2021 mammogram, 04/22/2020 mammogram, and 12/17/2017 mammogram - [facility]. There are scattered areas of fibroglandular density in both breasts (category b / 25%-50% glandular t issue). No significant masses, calcifications, or other findings are seen in either breast. There has been no significant interval change. IMPRESSION: NEGATIVE There is no mammographic evidence of malignancy. A 1 year screening mammogram is recommended. Based on the Tyrer Cuzick model (a risk assessment model) the patients lifetime risk is 7.6% and her 10 year risk is 1.4%. According to the ACR, ACS, and NCCN guidelines, an annual breast MRI exam ulisses g with mammogram is recommended if the patients lifetime risk is 20% or greater. This exam was interpreted at Station ID: [id number]. NOTE: For mammograms, a report in lay terms will be sent to the patient. Approximately 15% of breast malignancies will not be visualized mammographically. In the management of a palpable breast mass, a negative mammogram must not discourage biopsy of a clinically suspicious lesion. Electronically Signed By: Alberto alonzo/panfilo:08/16/2022 17:35:57 ACR BI-RADS Category 1: Negative 3341F PARENCHYMAL PATTERN: (A) - The breast(s) demonstrate(s) scattered fibroglandular densities. BI-RADS CATEGORY: (1) - 1 RECOMMENDATION: (ANNUAL) - Recommend routine annual screening mammography. [id number] 1 year screening LATERALITY: (B)
== END 2022-08-16 10:39 | disposition home or self-care (01) ==
LOC: DI.S 10:38
DX: Z12.31 Encounter for screening mammogram for malignant neoplasm of breast (principal)

== ENCOUNTER 2023-02-24 11:15 | Outpatient (CLI) | payer OTHER ==
--- NOTE | 2023-02-24 21:12 | Ultrasound Report ---
PROCEDURE: Pelvic w/Transvaginal INDICATIONS: RIGHT LOWER QUAD PAIN TECHNIQUE: Real-time scanning was performed of the pelvic organs, with image documentation. Additional endovagi nal scanning was necessary due to incomplete visualization of the adnexal and endometrial structures by transabdominal scanning. COMPARISON: 01/08/2018, 01/19/2016. FINDINGS: Uterus: Uterus is retroverted and normal in size at 8.5 x 3.4 x 4.8 cm. The myometrium is homogeneo us. The endometrium measures 5.9 mm in combined thickness. Left posterior intramural fibroid measur ing 1.8 x 1.5 x 2.3 cm, slightly larger compared to prior ultrasound. Ovaries: The right ovary is surgically absent. The left ovary is normal in size and appearance. Other : No pathologic free abdominal or pelvic fluid. IMPRESSION: 1. No acute ultrasound abnormality. 2. Status post right nephrectomy. 3. Stable left posterior intramural fibroid. Reviewed by: Gonzalo Ibrahim on 02/24/2023 8:11 PM KATELYNN Approved by: Gonzalo Ibrahim on 02/24/2023 8:11 PM KATELYNN Station ID: [id number]
== END 2023-02-24 11:16 | disposition home or self-care (01) ==
LOC: DI 11:15
PROVIDERS: ATTEND Nurse Practitioner Family
DX: D25.1 Intramural leiomyoma of uterus (principal); Z90.5 Acquired absence of kidney

== ENCOUNTER 2023-04-14 05:48 | Emergency (ER) | payer OTHER ==
[2023-04-14 06:11] LABS: BASOPHILS # (AUTO) 0.1 10^3/uL (0.0-0.1); BASOPHILS % (AUTO) 0.4 %; EOSINOPHILS # (AUTO) 0.2 10^3/uL (0.0-0.7); EOSINOPHILS % (AUTO) 1.6 %; HCT - HEMATOCRIT 47.3 % (37.0-47.0); HGB - HEMOGLOBIN 15.9 g/dL (12.0-16.0); LYMPHOCYTES # (AUTO) 2.4 10^3/uL (1.5-3.5); LYMPHOCYTES % (AUTO) 17.2 %; MEAN CORPUSCULAR HEMOGLOBIN 30.8 pg (27.0-31.0); MEAN CORPUSCULAR HGB CONC 33.6 g/dL (32.0-36.0); MEAN CORPUSCULAR VOLUME 91.5 fL (81.0-99.0); MEAN PLATELET VOLUME 10.9 fL (7.9-10.8); MONOCYTES % (AUTO) 7.3 %; NEUTROPHILS # (AUTO) 10.3 10^3/uL (1.5-6.6); NEUTROPHILS % (AUTO) 73.1 %; PLT - PLATELET COUNT 239 10^3/uL (130-450); RED BLOOD COUNT 5.17 10^6/uL (4.20-5.40); RED CELL DISTRIBUTION WIDTH 12.2 % (12.0-15.0); WHITE BLOOD COUNT 14.2 x10^3/uL (4.8-10.8)
[2023-04-14 06:15] LABS: BILIRUBIN,URINE NEGATIVE (NEGATIVE); GLUCOSE, URINE (UA) NEGATIVE (NEGATIVE); KETONES,URINE (UA) NEGATIVE (NEGATIVE); LEUKOCYTE ESTERASE, URINE LARGE (NEGATIVE); NITRITE,URINE POSITIVE (NEGATIVE); OCCULT BLOOD,URINE LARGE (NEGATIVE); PH,URINE 6.5 PH (5.0-7.5); PROTEIN,URINE >=300 mg/dL (NEGATIVE); UROBILINOGEN,URINE 0.2 (NORMAL) E.U./dL (NORMAL)
[2023-04-14 06:20] LABS: CLARITY,URINE TURBID (CLEAR)
[2023-04-14] MEDS ORDERED: CIPROFLOXACIN 400 MG/200 ML 400 MG/200 ML BAG IV STA (06:21)
[2023-04-14 06:22] LABS: AMORPHOUS SEDIMENT,UR Moderate /LPF; BACTERIA,URINE Moderate /HPF (None Seen); MUCUS,URINE Moderate Strands; SQUAMOUS EPITHELIAL CELL,UR FEW Squamous (<= Few); WBC,URINE >25 /HPF (0-5)
--- NOTE | 2023-04-14 06:30 | ED Physician Documentation ---
PD HPI ABD PAIN - Stated complaint Stated Complaint: STOMACH AND BACK PX - Chief complaint Chief Complaint: Abd Pain - History obtained from History obtained from: Patient - Additional information Additional information: 48-year-old woman with history of UTI presents with frequently urinating and dysuria for the past 4 days, intermittently with associated nausea and right lower abdominal pain radiating to the right back. Denies fever, vomiting, diarrhea, other symptoms. PD PAST MEDICAL HISTORY - Past Medical History Past Medical History: Yes Cardiovascular: Hypertension, Murmur, Arrhythmia Respiratory: Asthma, Sleep apnea, CPAP use Neuro: None Endocrine/Autoimmune: HyPOthyroidism GI: Other : None HEENT: Other Psych: Anxiety, Panic attacks, Claustrophobia Musculoskeletal: None Derm: None - Past Surgical History Past Surgical History: Yes General: Cholecystectomy, Colonoscopy /HUB BANDER: section, Tubal ligation, Oophrectomy - Present Medications Home Medications: Ambulatory Orders Medication Instructions Recorded Confirmed Albuterol Sulfate [Proair Hfa] 1 puffs IH QPM 03/14/16 04/14/23 Levothyroxine [Synthroid] 50 mcg PO QDAC 03/14/16 04/14/23 Nifedipine [Nifedical Xl] 60 mg PO DAILY 03/14/16 04/14/23 Potassium Chloride 20 meq PO DAILY 03/14/16 04/14/23 lisinopriL [Prinivil] 20 mg PO QPM 03/14/16 04/14/23 buPROPion [Wellbutrin Xl] 150 mg PO DAILY 07/18/22 04/14/23 Ciprofloxacin [Cipro] 250 mg PO Q12H #20 tablet 04/14/23 Semaglutide [Ozempic] 1.25 mg IM 04/14/23 - Allergies Allergies/Adverse Reactions: Allergies Allergy/AdvReac Type Severity Reaction Status Date / Time Penicillins Allergy Hives Verified 04/14/23 05:57 adhesive tape AdvReac Rash Verified 04/14/23 05:57 duloxetine AdvReac Nausea Verified 04/14/23 05:57 escitalopram AdvReac Nausea Verified 04/14/23 05:57 - Social History Does the pt smoke?: No Smoking Status: Never smoker Does the pt drink ETOH?: No Does the pt have substance abuse?: No - Immunizations Immunizations are current?: Yes - POLST Patient has POLST: No PD ED PE NORMAL - Vitals Vital signs reviewed: Yes - General General: Alert and oriented X 3, No acute distress, Well developed/nourished - HEENT HEENT: Atraumatic, PERRL, EOMI - Neck Neck: Supple, no meningeal sign - Cardiac Cardiac: RRR - Respiratory Respiratory: No respiratory distress, Clear bilaterally - Abdomen Abdomen: Non tender, Non distended - Back Back: Other (Right CVA discomfort to palpation) Results - Vitals Vitals: Vital Signs - 24 hr 04/14/23 04/14/23 05:53 06:15 Temperature 36.9 C Heart Rate 90 81 Respiratory 16 18 Rate Blood Pressure 151/107 H 129/82 H O2 Saturation 99 95 Oxygen O2 Source Room air - Labs Labs: Laboratory Tests 04/14/23 04/14/23 06:04 06:06 WBC 14.2 H RBC 5.17 Hgb 15.9 Hct 47.3 H MCV 91.5 MCH 30.8 MCHC 33.6 RDW 12.2 Plt Count 239 MPV 10.9 H Neut # (Auto) 10.3 H Lymph # (Auto) 2.4 Gillespie # (Auto) 1.0 Eos # (Auto) 0.2 Baso # (Auto) 0.1 Absolute Nucleated RBC 0.00 Nucleated RBC % 0.0 Urine Color YELLOW Urine Clarity TURBID Urine pH 6.5 Ur Specific [place] 1.025 Urine Protein >=300 H Urine Glucose (UA) NEGATIVE Urine Ketones NEGATIVE Urine Occult Blood LARGE H Urine Nitrite POSITIVE H Urine Bilirubin NEGATIVE Urine Urobilinogen 0.2 (NORMAL) Ur Leukocyte Esterase LARGE H Urine RBC 11-25 H Urine WBC >25 H Ur Squamous Epith Cells FEW Squamous Amorphous Sediment Moderate Urine Bacteria Moderate H Urine Mucus Moderate Strands Ur Microscopic Review INDICATED Urine Culture Comments INDICATED PD Medical Decision Making - ED course ED course: 48-year-old woman with history of UTI presents with urinary tract infection today. Suspect pyelonephritis given right flank pain. She is allergic to penicillins therefore ciprofloxacin was provided for her. Antibiotics sent to pharmacy. Return precautions given. Plan to follow-up with primary care provider. Departure - Departure Disposition: 01 Home, Self Care Clinical Impression: Pyelonephritis Condition: Stable Instructions: Pyelonephritis Dc Prescriptions: Ciprofloxacin [Cipro] 250 mg PO Q12H #20 tablet Comments: You were seen in the emergency department for uti and got a script for antibiotics sent to [facility] in [place]. Please follow-up with your primary care provider and return to the emergency department if you have any new or worsening symptoms or other concerns. Forms: PCP List
[2023-04-14 06:32] LABS: ALBUMIN 4.5 g/dL (3.2-5.5)
[2023-04-14 06:34] VITALS: O2SAT 95
[2023-04-14] MEDS ORDERED: SODIUM CHLORIDE 0.9% 1,000 ML IV STA (06:40)
[2023-04-14 06:46] LABS: ALBUMIN/GLOBULIN RATIO 1.4 (1.0-2.2); BILIRUBIN,TOTAL 0.5 mg/dL (0.2-1.0); CREATININE 0.8 mg/dL (0.6-1.3); TOTAL PROTEIN 7.8 g/dL (6.4-8.9)
[2023-04-14] MEDS ORDERED: HYDROmorphone 0.5 MG/0.5 ML SYRINGE IVP STA (07:55)
[2023-04-14] MEDS ORDERED: KETOROLAC 15 MG/ML VIAL IVP STA (07:55)
--- NOTE | 2023-04-14 07:57 | ED Physician Documentation ---
ED Addendum - Addendum Addendum: 04/14/23 07:56 The patient had been labeled for discharge. She states she is still having some pain in her back and requested medication for that prior to discharge. She was still getting a dose of the Cipro. I added an ketorolac 15 mg IV and hydromorphone 0.5 mg IV. I reviewed the lab results with her.
[2023-04-14 08:17] VITALS: BP 136/85
== END 2023-04-14 08:26 | disposition home or self-care (01) ==
LOC: ED 05:48
DX: I10 Essential (primary) hypertension (principal); N12 Tubulo-interstitial nephritis, not specified as acute or chronic; M54.9 Dorsalgia, unspecified
CPT/HCPCS: 36415; 80053; 81001; 83690; 85025; 87086; 87181; 96365; 96366; 96375; 99283; J1170; 81003

== ENCOUNTER 2023-06-09 08:00 | Outpatient (CLI) | payer OTHER ==
[2023-06-09 18:53] LABS: BILIRUBIN,URINE NEGATIVE (NEGATIVE); GLUCOSE, URINE (UA) NEGATIVE (NEGATIVE); KETONES,URINE (UA) NEGATIVE (NEGATIVE); LEUKOCYTE ESTERASE, URINE SMALL (NEGATIVE); NITRITE,URINE NEGATIVE (NEGATIVE); OCCULT BLOOD,URINE LARGE (NEGATIVE); PROTEIN,URINE NEGATIVE (NEGATIVE); UROBILINOGEN,URINE 0.2 (NORMAL) E.U./dL (NORMAL)
[2023-06-09 18:57] LABS: CLARITY,URINE HAZY (CLEAR)
[2023-06-09 19:11] LABS: BACTERIA,URINE Moderate /HPF (None Seen); SQUAMOUS EPITHELIAL CELL,UR NONE SEEN (<= Few)
== END 2023-06-09 23:59 | disposition home or self-care (01) ==
LOC: LAB.S 08:00
PROVIDERS: ATTEND Emergency Medicine
DX: R30.0 Dysuria (principal)
CPT/HCPCS: 81001; 87086

== ENCOUNTER 2023-07-02 12:55 | Outpatient (CLI) | payer OTHER ==
--- NOTE | 2023-07-02 21:42 | SLEEP CARE CONSULTATION ---
Information from patient questionnaire entered by Ashwini Young. I have reviewed and concur with the information entered by Ashwini Young. This document represents the service I personally performed and the decisions made by me, Roney Barrow MD, [facility]. History of Present Illness Service Date and Time: 07/02/2023 1255 Previous diagnosis: Moderate, Obstructive Sleep Apnea-Hypopnea Syndrome AHI: 20.0 (in 2017) Reason for follow up: annual (LAST SEEN 05/2022) Equipment type: CPAP (RESMED) Equipment obtained from: [employer] (getting supplies as needed) Mask style: Full face Prior sleep studies: Yes Year and Where: 2016 - [facility] Type of Sleep Study: Home sleep study HPI additional information: Ms. Zepeda returned today for follow up of nasal CPAP therapy. She was diagnosed to have moderate obstructive sleep apnea-hypopnea syndrome. The benedicto ent went to [facility] for the equipment and was fitted with a full face mask. She reports using the device nightly and all through the night. The compliance report shows usage in 363 nights out of the past 365 nights, averaging 6.7 hours a night. She complained of no particular problem with the device such as soreness on the face, dry nose, epistaxis, nasal congestion or headache. She thinks that the pressure of 6.4 cmH2O is comfortable. On the CPAP therapy she notices improvement in her sleep quality, and that she wakes up feeling fresher in the morning and more awake/alert during the day. The [place] Sleepiness Scale score 2. Her notices no snore at all. The average residual AHI is 2.4; and air leak, 2.1 L/min. The 90th percentile pressure is 4.4 cmH2O. Sleep Study - Results Type of Sleep Study: Home sleep study Prior sleep studies: Yes Year and Where: 2016 - [facility] CPAP Compliance Data - Data Reviewed with Patient Average duration of nightly device use: 6HRS 42 MINS Compliance rate %: 96 (07/02/2022-07/01/2023) Current pressure setting (cmH2O): 6.4-FULLTIME Average residual AHI: 2.4 Subjective Initial [place] Sleepiness Scale score: 6 (in 2011) Current [place] Sleepiness Scale score: 2 (07/02/23) Allergies and Home Medications Drug allergies reviewed: Yes Home medication list reviewed: Yes Allergy and home medication list: Allergies Penicillins Allergy (Verified 07/02/23 08:09) Hives adhesive tape Adverse Reaction (Verified 07/02/23 08:09) Rash duloxetine Adverse Reaction (Verified 07/02/23 08:09) Nausea escitalopram Adverse Reaction (Verified 07/02/23 08:09) Nausea Review of Systems Review of systems same as previous: Yes Physical Exam Vital signs obtained and entered by: ASHWINI Armenta MA Blood Pressure: 134/88 (LEFT ARM) Cuff size: long Heart Rate: 98 O2 Saturation: 84 Height: 5 ft 8 in Weight: 243 lb Body Mass Index: 36.9 BMI Classification: Obese Impression and Plan IMPRESSION: 1. Obstructive Sleep Apnea-Hypopnea Syndrome, moderate with the patient doing well on nasal CPAP therapy. She has excellent compliance and significant clinical improvement. The current pressure appears effective and comfortable. Overall, she is very satisfied with treatment and plans to continue with it long-term. No adjustment is necessary today. Because she lost 25 lbs and slept well the one night she did not use her CPAP, I will order another home sleep apnea test (HSAT) to see if she still has significant sleep- disordered breathing. PLAN: 1. Repeat home sleep apnea test (HSAT) 2. Try to lose more weight 3. Return for follow up after the test. Counseling Topics: Weight control Follow up with Sleep Care in: 1-2 months Visit Type: In Office Time Spent with Patient (minutes): 15 Provider Statement: I spent 100% of the Face to Face Visit with the patient with greater than 50% spent counseling the patient and coordination of care.
[2023-07-02 21:45] VITALS: BP 134/88; O2SAT 84
== END 2023-07-02 12:56 | disposition home or self-care (01) ==
LOC: SC 12:55
PROVIDERS: ATTEND Internal Medicine Pulmonary Disease
DX: G47.33 Obstructive sleep apnea (adult) (pediatric) (principal); E66.9 Obesity, unspecified; Z68.36 Body mass index [BMI] 36.0-36.9, adult
CPT/HCPCS: 99212

== ENCOUNTER 2023-07-16 09:00 | Outpatient (CLI) | payer OTHER | END 2023-07-16 09:01 | disposition home or self-care (01) | LOC: SC 09:00 | PROVIDERS: ATTEND Internal Medicine Pulmonary Disease | DX: G47.33 Obstructive sleep apnea (adult) (pediatric) (principal); R09.02 Hypoxemia | CPT/HCPCS: 95806 ==

== ENCOUNTER 2023-07-25 08:58 | Outpatient (CLI) | payer OTHER ==
--- NOTE | 2023-07-26 16:41 | Mammography Report ---
BILATERAL DIGITAL SCREENING MAMMOGRAM 3D/2D: 07/25/2023 CLINICAL: Routine screening. Comparison is made to exams dated: 08/16/2022 mammogram, 08/08/2021 mammogram, 04/22/2020 mammogram, a nd 12/17/2017 mammogram - [facility]. There are scattered areas of fibroglandular density in both breasts (category b / 25%-50% glandular t issue). There is a benign focal asymmetry in the right breast. No significant masses, calcifications, or other findings are seen in either breast. There has been no significant interval change. IMPRESSION: BENIGN There is no mammographic evidence of malignancy. A 1 year screening mammogram is recommended. Based on the Tyrer Cuzick model (a risk assessment model) the patients lifetime risk is 6.6% and her 10 year risk is 1.2%. According to the ACR, ACS, and NCCN guidelines, an annual breast MRI exam ulisses g with mammogram is recommended if the patients lifetime risk is 20% or greater. This exam was interpreted at Station ID: [id number]. NOTE: For mammograms, a report in lay terms will be sent to the patient. Approximately 15% of breast malignancies will not be visualized mammographically. In the management of a palpable breast mass, a negative mammogram must not discourage biopsy of a clinically suspicious lesion. Electronically Signed By: Alberto alonzo/panfilo:07/25/2023 13:23:53 letter sent: No_Letter ACR BI-RADS Category 2: Benign Finding(s) 3342F PARENCHYMAL PATTERN: (A) - The breast(s) demonstrate(s) scattered fibroglandular densities. BI-RADS CATEGORY: (2) - 2 Mammogram [id number] 1 year screening LATERALITY: (B)
== END 2023-07-25 08:59 | disposition home or self-care (01) ==
LOC: DI.S 08:58
DX: Z12.31 Encounter for screening mammogram for malignant neoplasm of breast (principal); R92.323 Mammographic fibroglandular density, bilateral breasts

== ENCOUNTER 2023-07-30 12:02 | Outpatient (CLI) | payer OTHER ==
--- NOTE | 2023-07-30 10:21 | SLEEP CARE CONSULTATION ---
Information from patient questionnaire entered by Ashwini Young. I have reviewed and concur with the information entered by Ashwini Young. This document represents the service I personally performed and the decisions made by me, Roney Barrow MD, [facility]. History of Present Illness Service Date and Time: 07/30/2023 1000 Initial [place] Sleepiness Scale score: 6 (in 2011) Current [place] Sleepiness Scale score: 3 (07/30/23) Additional HPI information: HPI: Ms. Zepeda returned for follow up of the home sleep apnea test (HSAT) she had on 07/16/23. The test showed moderate obstructive sleep apnea-hypopnea, with an AHI of 23.1/hr and camilla SaO2 of 81%. During the study, the patient had 48 apneas (48 obstructive, 0 central, 0 mixed) and 91 hypopneas. The longest episode lasted 62.5 seconds. The respiratory events occurred more frequently during supine sleep (supine AHI was 27.0 and non-supine, 14.82). Hypoxemia was mild, with the lowest oxygen saturation of 81 % and 103.2 minutes with SaO2 under 90%. Baseline oxygen saturation was normal (Average oxygen saturation was 91%). The patient was informed of these findings. I explained to her that she still have moderate obstructive sleep apnea-hypopnea despite the weight loss. She is using a ResMed AirSense 11 at home. The residual AHI is only 3.0. Air leak is minimal. He CPAP is set at 6.4 cmH2O. Sleep Study - Results Type of Sleep Study: Home sleep study (COMPLETED 07/16/23) Prior sleep studies: Yes Year and Where: 2017 - [facility] Allergies and Home Medications Drug allergies reviewed: Yes Home medication list reviewed: Yes Allergy and home medication list: Allergies Penicillins Allergy (Verified 07/02/23 12:59) Hives adhesive tape Adverse Reaction (Verified 07/02/23 12:59) Rash duloxetine Adverse Reaction (Verified 07/02/23 12:59) Nausea escitalopram Adverse Reaction (Verified 07/02/23 12:59) Nausea Review of Systems Review of systems same as previous: Yes (NO CHANGE) Physical Exam Vital signs obtained and entered by: ASHWINI Armenta MA Blood Pressure: 120/82 (PER PT) Height: 5 ft 8 in (PER PT) Weight: 238 lb (PER PT) Body Mass Index: 36.1 BMI Classification: Obese Impression and Plan IMPRESSION: 1. Obstructive Sleep Apnea-Hypopnea Syndrome, moderate, associated with mild hypoxemia. The patient is doing well on the CPAP therapy. She should continue the treatment and lose more weight. PLAN: 1. Continue with CPAP set at 6.4 cmH2O. 2. Attempt to lose more weight. 3. Return for a follow up in a year or earlier if there is any problem. Continue with device pressure at (cmH2O): 6.4 Counseling Topics: Weight control Follow up with Sleep Care in: 1 year Visit Type: Telehealth Video Video Type: [employer] Patient Location: Home Location of Provider: Office Patient agrees and consents to this telehealth visit type: Yes Patient agrees to have their insurance billed: Yes Time Spent with Patient (minutes): 15 Provider Statement: I spent 100% of the Telehealth Video Call with the patient with greater than 50% spent counseling the patient and coordination of care.
[2023-07-30 10:23] VITALS: BP 120/82
== END 2023-07-30 12:03 | disposition home or self-care (01) ==
LOC: SC 12:02
PROVIDERS: ATTEND Internal Medicine Pulmonary Disease
DX: G47.33 Obstructive sleep apnea (adult) (pediatric) (principal); E66.9 Obesity, unspecified; Z68.36 Body mass index [BMI] 36.0-36.9, adult

== ENCOUNTER 2023-09-18 07:48 | Outpatient (CLI) | payer OTHER ==
--- NOTE | 2023-09-18 08:19 | CARDIAC PROCEDURE NOTE ---
Stress Test Report Service Date: 09/18/23 Service Time: 08:00 Ordering Provider: Autumn Mirza NP Indication for Test: Assess aching chest discomfort with palpitations. Significant Medical History: Gale is referred for a treadmill stress echocardiogram to evaluate intermittent "chest flutters" that have become more frequent in recent months, as well as occasional chest aching that occurs primarily at rest. She reports that the palpitations are more common at night and after a few seconds of deep breathing they resolve. She has intermittent lightheadedness but not associated with the palpitations. Chest aching comes and goes without any definable pattern or triggers. She is quite active, working full-time and in her salon and doing elliptical workouts with strength training exercises several times per week. The chest discomfort does not typically occur with exertion. A few years ago she had an echocardiogram to assess a heart murmur, apparently done elsewhere as results do not appear to be available. She does report that a week ago her levothyroxine dose was decreased somewhat, though she has not noticed a reduction in palpitations as of yet. Cardiac Risk Factors: Positive for hypertension, treated for nearly 25 years; negative for history of diabetes, hyperlipidemia family history of coronary artery disease and any history of tobacco smoking. Type of Stress Test: ETT with Echocardiography Procedure: -Exercise Treadmill Test- After signing informed consent, the patient underwent echo imaging at rest and then performed treadmill exercise using a Mamadou protocol. The patient exercised for 6 minutes 53 seconds and achieved a peak heart rate of 162 (93 percent predicted maximum heart rate for age), and an estimated workload of 8.4 METS. The test was terminated due to fatigue/shortness of breath. Resting heart rate: 91 Peak heart rate: 162 Normal response to exercise. Resting BP: 135/90 Peak BP: 166/70 Elevated resting diastolic BP with apparently normal response of systolic and diastolic BPs to exercise. Peak exercise recorded BP of 116/63 of questionable validity. Rhythm during exercise: Sinus rhythm throughout with frequent isolated PACs and a total of 15 PVCs recorded, per computer interpretation. Symptoms: No report of chest achiness/pressure/discomfort. EKG at rest showed normal sinus rhythm with low precordial QRS voltage magnitude and diminished R wave in leads V1 and especially V2; no resting ST/T abnormalities. EKG at peak stress showed no ischemia by EKG criteria. In Recovery heart rate rapidly/normally declined toward resting level and BP decreased to a level below prior resting (122/80 at 4:35). Echo imaging, performed at rest and with stress, will be reported separately. IAxel MD, was present throughout this treadmill stress study and supervised it in its entirety. Summary: 1) Exercise tolerance was below averaged for age and sex, as evidenced by SANJEEV of 15%. 2) Normal resting EKG. 3) Adequate level of exercise was achieved on this treadmill stress test. 4) Hypertensive at rest with normal BP response to exercise. 5) No ischemic changes by EKG criteria were seen at peak stress. 6) Preliminary echo image interpretation reveals normal left ventricular size, wall thickness and systolic function, with appropriate hyperdynamic augmentation of all segments with exercise, indicating no evidence of prior infarct or inducible ischemia. No significant valvular abnormality or elevation of estimated pulmonary artery systolic pressure seen on screening study. See separate report for more details. Conclusions and Recommendations: 1) This is a reassuring treadmill stress echocardiogram study, with no symptom/EKG/echocardiographic evidence of inducible ischemia. No structural valve disease as a cause of a heart murmur was identified. 2) Although the patient's recent clinic note discusses the possibility of ambulatory rhythm monitoring for palpitations, the study has not yet been ordered. We discussed waiting a couple of more weeks to see whether the palpitations would resolve following the decrease in her levothyroxine dose. If palpitations persist then ambulatory monitoring with a CAM patch would be appropriate. There is also the consideration that computer interpretation of her rhythm revealed some PVCs on this stress study, though they are certainly not as clear to my eye as are her PACs. Thus it could be appropriate to perform rhythm monitoring in a few weeks even if her symptoms have nearly completely resolved.
== END 2023-09-18 07:49 | disposition home or self-care (01) ==
LOC: DI 07:48
PROVIDERS: ATTEND Registered Nurse
DX: I49.9 Cardiac arrhythmia, unspecified (principal); I10 Essential (primary) hypertension
CPT/HCPCS: 93350